=== PATIENT | female | born 1980 | race Caucasian/White ===

== ENCOUNTER → 2017-12-04 | Outpatient (CLI) | payer BC ==
--- NOTE | 2017-12-04 15:48 | RAD ---
DATE: 12/04/2017 EXAM: MAMMO RADHA ALESSANDRA WOLFF, BREAST RIGHT HISTORY: Right lateral breast pain COMPARISON: None available This study was interpreted with the benefit of Computerized Aided Detection (CAD). The breast parenchyma shows scattered fibroglandular densities. Breast parenchyma level B. FINDINGS: 2-D and 3-D tomosynthesis imaging was performed in CC and MLO projections. The breasts are mildly asymmetric with increased density laterally on the right compared to the left. No discrete mass is seen. This probably represents a normal variant in the fibroglandular pattern in this patient. Benign type calcifications are present. No suspicious microcalcifications are seen. Right breast ultrasound, 12/04/2017: A targeted ultrasound exam of the the upper outer right breast was performed in the area of pain. Normal heterogeneous fibroglandular shadows are evident. No breast mass is seen. IMPRESSION: 1. Mild breast asymmetry probably represents a normal variant in this patient. 2. No mammographic evidence of malignancy. 3. A targeted ultrasound exam of the area of right breast reveals no abnormality. Clinical surveillance is suggested. BI-RADS CATEGORY: 2 BENIGN FINDING(S) RECOMMENDED FOLLOW-UP: CLIN FOLLOW UP IMAGING CLINICALLY INDICATED Mammography is a sensitive method for finding small breast cancers, but it does not detect them all and is not a substitute for careful clinical examination. A negative mammogram does not negate a clinically suspicious finding and should not result in delay in biopsying a clinically suspicious abnormality. "Our facility is accredited by the [employer] Mammography Program."
== END | disposition home or self-care (01) ==
LOC: MAMMO 13:29
PROVIDERS: ATTEND Family Medicine
DX: N64.4 Mastodynia (principal)
CPT/HCPCS: 76641; 77066; G0279; 77062

== ENCOUNTER → 2020-03-22 | Outpatient (CLI) | payer BC ==
[~2020-03-22] MED LIST: ALBU2.5V8 IH; AZIT250T6 PO
--- NOTE | 2020-03-22 15:15 | RAD ---
CHEST PA LATERAL History: Cough Comparison: None. Findings: 2 views of the chest are submitted. There is some hazy airspace opacity right lung base. There is no pleural fluid or pneumothorax. Heart size is within normal limits. Impression: 1. There is hazy right base airspace opacity which may be infiltrate. Electronically signed by: Amanuel Bansal MD (03/22/2020 3:11 PM) [id number]
== END ==
LOC: DXRAD 14:25
PROVIDERS: ATTEND Family Medicine
DX: R91.8 Other nonspecific abnormal finding of lung field (principal); R05 Cough
CPT/HCPCS: 71046

== ENCOUNTER 2020-03-24 12:35 | Emergency (ER) | payer BC ==
[~2020-03-24] VITALS: Ht 157.5 cm; Wt 137.0 kg
[2020-03-24 13:35] VITALS: BP 162/87
--- NOTE | 2020-03-24 13:46 | RAD ---
PORTABLE CHEST 1V History: Shortness of breath Comparison: March 22, 2020 Findings: AP view of the chest is submitted. Cardiac silhouette is stable. There is some persistent right base hazy airspace opacity not convincingly changed. There is no dependent pleural fluid or pneumothorax. Impression: 1. There is some persistent hazy right base opacity which may be mild infiltrate. Electronically signed by: Amanuel Bansal MD (03/24/2020 1:43 PM) [facility]
[2020-03-24 13:47] LABS: BASO % 1 % (0-3); EOS # 0.3 x10^3/uL (0.0-0.7); EOS % 4 % (0-3); HEMATOCRIT 40.8 % (36.0-47.0); HEMOGLOBIN 13.3 g/dL (12.0-15.5); LYMPH # 2.6 x10^3/uL (1.0-4.8); LYMPH % 34 % (24-48); MEAN CORPUSCULAR HEMOGLOBIN 28 pg (25-35); MEAN CORPUSCULAR HGB CONC 33 g/dL (31-37); MEAN CORPUSCULAR VOLUME 85 fL (79-100); MONO # 0.6 x10^3/uL (0.0-1.1); MONO % 8 % (0-9); NEUT # 4.2 x10^3uL (1.8-7.7); NEUT % 54 % (31-73); PLATELET COUNT 253 x10^3/uL (140-400); RED BLOOD COUNT 4.79 x10^6/uL (3.50-5.40); RED CELL DISTRIBUTION WIDTH 13.6 % (11.5-14.5); WHITE BLOOD COUNT 7.8 x10^3/uL (4.0-11.0)
[2020-03-24 14:00] LABS: PREG TEST PT QUAL NEGATIVE (NEG)
[2020-03-24 14:01] LABS: CALCIUM 8.9 mg/dL (8.5-10.1); CREATININE 0.7 mg/dL (0.6-1.0); GFR 93.2; POTASSIUM 3.9 mmol/L (3.5-5.1)
--- NOTE | 2020-03-24 14:02 | PHYS DOC ---
General Adult EDM: Chief Complaint: COUGH HPI: HPI: 40-year-old female past medical history of uterine fibroids status post hysterectomy and obesity, presents the ED with complaints of cough, fatigue, shortness of breath and sore throat for the past 10 days. Reports her works at [employer] and has never tested positive for Covid. Patient has had 2 - Covid test. No history of asthma or underlying lung disease. Is not a tobacco smoker. Reports she was started on doxycycline 2 days ago by her primary care physician Dr. Azar. Review of Systems: Review of Systems: Constitutional: Denies fever or chills Eyes: Denies change in visual acuity HENT: Denies nasal congestion or rhinorrhea or conjunctivitis Respiratory: Denies hemoptysis, increased sputum Cardiovascular: Denies chest pain or edema GI: Denies abdominal pain, nausea, vomiting, bloody stools or diarrhea : Denies dysuria or hematuria Musculoskeletal: Denies back pain or joint pain or calf swelling Integument: Denies rash or blisters Neurologic: Denies headache, focal weakness or sensory changes Endocrine: Denies polyuria or polydipsia Lymphatic: Denies swollen glands Psychiatric: Denies depression or anxiety Heart Score: Risk Factors: Risk Factors: DM, Current or recent (<one month) smoker, HTN, HLP, family history of CAD, obesity. Risk Scores: Score 0 - 3: 2.5% MACE over next 6 weeks - Discharge Home Score 4 - 6: 20.3% MACE over next 6 weeks - Admit for Clinical Observation Score 7 - 10: 72.7% MACE over next 6 weeks - Early Invasive Strategies Physical Exam: PE: Constitutional: Well developed, well nourished, flu- appearance/non-toxic. [] HENT: Normocephalic, atraumatic, bilateral external ears normal, oropharynx moist, no oral exudates, nose normal. [] Eyes: EOMI, conjunctiva normal, no discharge. [] Neck: Normal range of motion, supple, Cardiovascular: S1 and S2 present Lungs & Thorax: Speaking in full sentences, bilateral equal chest rise Abdomen: soft, no tenderness, Skin: Warm, dry, no erythema, no rash. [] Back: No tenderness, Extremities: No tenderness, no cyanosis, no clubbing, ROM intact, no edema. [] Neurologic: Alert and oriented X 3, normal motor function, normal sensory function, no focal deficits noted. [] Psychologic: Affect normal, judgement normal, mood normal. [] Current Patient Data: Labs: Laboratory Tests Test 03/24/20 13:18 White Blood Count 7.8 x10^3/uL (4.0-11.0) Red Blood Count 4.79 x10^6/uL (3.50-5.40) Hemoglobin 13.3 g/dL (12.0-15.5) Hematocrit 40.8 % (36.0-47.0) Mean Corpuscular Volume 85 fL (79-100) Mean Corpuscular Hemoglobin 28 pg (25-35) Mean Corpuscular Hemoglobin Concent 33 g/dL (31-37) Red Cell Distribution Width 13.6 % (11.5-14.5) Platelet Count 253 x10^3/uL (140-400) Neutrophils (%) (Auto) 54 % (31-73) Lymphocytes (%) (Auto) 34 % (24-48) Monocytes (%) (Auto) 8 % (0-9) Eosinophils (%) (Auto) 4 % (0-3) H Basophils (%) (Auto) 1 % (0-3) Neutrophils # (Auto) 4.2 x10^3uL (1.8-7.7) Lymphocytes # (Auto) 2.6 x10^3/uL (1.0-4.8) Monocytes # (Auto) 0.6 x10^3/uL (0.0-1.1) Eosinophils # (Auto) 0.3 x10^3/uL (0.0-0.7) Basophils # (Auto) 0.0 x10^3/uL (0.0-0.2) Serum Test, Qualitative Negative (NEG) EKG: EKG: Sinus rhythm at 71 bpm, no axis deviation, normal intervals, T wave inversion lead III, no ST elevations or ST depressions Radiology/Procedures: Radiology/Procedures: []IMAGING REPORT Signed PATIENT: WILBERT JONES ACCOUNT: [id number] : 1980 LOCATION: ER AGE: 40 SEX: F EXAM STATUS: REG ER ORD. PHYSICIAN: OCTAVIO DALTON DO REASON: SHORTNESS OF BREATH PROCEDURE: PORTABLE CHEST 1V PORTABLE CHEST 1V History: Shortness of breath Comparison: March 22, 2020 Findings: AP view of the chest is submitted. Cardiac silhouette is stable. There is some persistent right base hazy airspace opacity not convincingly changed. There is no dependent pleural fluid or pneumothorax. Impression: 1. There is some persistent hazy right base opacity which may be mild infiltrate. Electronically signed by: Macho Scherer MD (03/24/2020 1:43 PM) [facility] DICTATED AND SIGNED BY: MACHO SCHERER MD DATE: 03/24/20 3010 CC: JAIRON CONTRERAS MD; OCTAVIO DALTON DO ~ Impressions: PERC rule for PE 0 criteria No need for further workup, as <2% chance of PE. If no criteria are positive and clinicians pre-test probability is <15%, PERC Rule criteria are satisfied. 0 points Low risk group for DVT. Unlikely according to [facility] DVT studies. Course & Med Decision Making: Course & Med Decision Making Pertinent Labs and Imaging studies reviewed. (See chart for details) COVID-19 CRITERIA: The patient was evaluated during the global COVID-19 pandemic, and that diagnosis was suspected/considered upon their initial presentation. Their evaluation, treatment and testing was consistent with current guidelines for patients who present with complaints or symptoms that may be related to COVID-19. Concern for URI sxs x10 days, started on antibiotics 2 days ago. Chest x-ray concerning for right lower lobe community-acquired pneumonia. Covid test pending. D-dimer within normal limits. Urinalysis with no signs of infection, trace blood. Troponin negative. Pt not toxic appearing, speaking in full sentences, requiring no supplemental oxygen. Will DC home with albuterol inh aler advised to continue her antibiotics. Strict ED return precautions were given for strokelike symptoms, chest pain, increased work of breathing, worsening shortness of breath or dehydration. Encouraged urgent outpatient follow-up with PMD. Life-threatening processes were considered but are low suspicion at this time, given history and physical exam. Pt was educated on all prescription medications and adverse effects. All patient's questions were answered and pt was stable at time of discharge. Life/limb-threatening differential includes but is not limited to, surgical abdomen (appendicitis, cholecystitis, diverticulitis, inflammatory bowel disease, abscess, perforation), meningitis, encephalitis, Nate's angina, necrotizing fasciitis, endocarditis, life-threatening rash, viral syndrome, gynecologic and urologic emergencies (endometritis, ovarian/testicular torsion, TOA, obstructive nephropathy, prostatitis), head and neck abscess, sepsis or shock, or respiratory failure. I spoken with the patient and her caregivers. I explained the patient's condition, diagnoses and treatment plan based on the information available to me at this time. I have answered the patient and her caregiver's questions and addressed any concerns. The patient and her caregivers have a good understanding of patient's diagnosis, condition and treatment plan as can be expected at this point. Vital signs have been stable. Patient's condition is stable and appropriate for discharge from the emergency department. Patient will pursue further outpatient evaluation with primary care physician or other designated or consulting physician as outlined in the discharge instructions. The patient and/or caregivers are agreeable to this plan of care and follow-up instructions have been explained in detail. The patient and/or caregivers have received these instructions in written form and have expressed an understanding of the discharge instructions. The patient and/or caregivers are aware that any significant change of condition or worsening of symptoms should prompt immediate return to this or the closest emergency department or call to 911. Cydney Disclaimer: Cydney Disclaimer: This electronic medical record was generated, in whole or in part, using a voice recognition dictation system. Departure Departure: Impression: Primary Impression: CAP (community acquired pneumonia) Additional Impression: Suspected COVID-19 virus infection Disposition: 01 [place] HOME SELF CARE/HOMELESS Condition: STABLE Referrals: JAIRON CONTRERAS MD (PCP) in 2-3 days for re-check Patient Instructions: Pneumonia, Adult Additional Instructions: You have been tested for or diagnosed with COVID-19. It is an infection caused by a new type of coronavirus. COVID-19 will cause cold-like or mild flu symptoms in most. It can cause more severe symptoms like problems breathing in some. There is no treatment for COVID-19. The body will clear the infection over time. Self-care will help to ease discomfort. Steps to Take: Self-Care Rest as needed. Healthy habits may help you feel better. Steps include: Choose healthy foods including fruits and vegetables. Drink water throughout the day. Get plenty of sleep each night. If you smoke, try to quit. It may ease breathing. Avoid alcohol. Keep Others Healthy The virus can spread to others. Droplets are released every time you sneeze or cough. The droplets can get into the mouth, nose, or eyes of people near you and lead to infection. To lower the chances of spreading COVID-19 to others: Stay at home until your doctor has said it is safe to leave. If you tested positive this will mean staying isolated until both of the following are true: At least 7 days have passed since the start of illness. You are free of fever for at least 72 hours without the use of medicine. During this time: - Avoid public areas, events, or transportation. Do not return to work or school until your doctor has said it is safe to do so. - Call ahead if you need to go to a medical center. Let them know you may have COVID-19. It will help them guide you where to go. They may also ask you to wear a facemask when you come to the office. - If you call for emergency medical services, let them know you may have COVID- 19. While at home: - Try to avoid close contact with others. Stay about 6 feet away. - If possible, spend most of your time in a separate room from others. - Use a face mask if you will be in close contact with others such as sharing a room or vehicle. - Have someone wipe down common surfaces in the home. Use household health technician hearing every day on areas like doorknobs, counters, or sinks. - Cough or sneeze into a tissue. Throw the tissue away right after use. If a tissue is not available, cough or sneeze into your elbow. - Wash your hands often. Wash them after sneezing or coughing. Use soap and water and wash for at least 20 seconds. Alcohol based hand power cleaner operator can be used if soap and water is not available. - Do not prepare food for others. Avoid sharing personal items like forks, spoons, or toothbrushes. - Avoid close contact with pets while you are sick. There is no evidence of the virus passing to pets. This is a safety step until more is known about this virus. Isolation can be frustrating. Social interaction can help. Keep in touch with friends and family through phone and tech options. You can still interact with others in your home, just keep a safe distance of about 6 feet. Follow-up: Your doctors office will check in with you to see if there are any changes in your health. You may be asked to keep track of symptoms to share with them. They will also let you know when you are clear to be in public again. Problems to Look Out For: Contact your doctor if your recovery is not going as you expect. Get emergency care if you have problems such as: - Trouble breathing - Nonstop chest pain or pressure - Changes in awareness, confusion, or problems waking - Lips or face have bluish color - Worsening of symptoms If you think you have an emergency, call for emergency medical services right away. As taken from [facility] Albuterol Sulfate (VENTOLIN HFA INHALER) 18 Gm Hfa.aer.ad 1 PUFF IH PRN Q2HRS PRN for for shortness of breath, #1 INHALER 0 Refills Prov: OCTAVIO DALTON DO 03/24/20 OCTAVIO DALTON DO Mar 24, 2020 14:02
[2020-03-24 14:06] LABS: ALBUMIN 3.5 g/dL (3.4-5.0); MAGNESIUM 1.9 mg/dL (1.8-2.4); TOTAL BILIRUBIN 0.2 mg/dL (0.2-1.0); TOTAL PROTEIN 7.1 g/dL (6.4-8.2)
[2020-03-24 14:34] LABS: BARBITURATES NEG (NEG); BENZODIAZEPINES NEG (NEG); CANNABINOIDS NEG (NEG); COCAINE NEG (NEG); METHADONE NEG (NEG); OPIATES NEG (NEG); PHENCYCLIDINE NEG (NEG)
[2020-03-24 14:35] LABS: AMPHETAMINE/METHAMPHETAMINE NEG (NEG)
[2020-03-24 14:41] LABS: BACTERIA,URINE 0 /HPF (0-FEW); BILIRUBIN,URINE NEG (NEG); CLARITY,URINE CLEAR; COLOR,URINE COLORLESS; GLUCOSE,URINE NEG (NEG); NITRITE,URINE NEG (NEG); RBC,URINE RARE /HPF (0-2); SQUAMOUS EPITHELIAL CELL,UR FEW /LPF; UROBILINOGEN,URINE 0.2 mg/dL (0.2 mg/dL); WBC,URINE 0 /HPF (0-4)
[2020-03-24] MEDS ORDERED: ALBU2.5V8 IH (14:44)
[2020-03-24] MEDS ORDERED: AZIT250T6 PO (14:44)
--- NOTE | 2020-03-24 15:16 | EKG ---
[address] [address] Test Date: 2020-03-24 Test Time: 13:05:53 Pat Name: WILBERT JONES Department: Room: Gender: F Integrated Specialist: MINI : 1980 Requested By: OCTAVIO DALTON Order Number: [id number] Reading MD: Measurements Intervals [place] Rate: 71 P: 45 IA: 148 QRS: 36 QRSD: 88 T: 17 QT: 384 QTc: 417 Interpretive Statements SINUS RHYTHM NORMAL ECG RI6.02 No previous ECG available for comparison
== END 2020-03-24 15:10 | disposition home or self-care (01) ==
LOC: ER 12:35
DX: J18.9 Pneumonia, unspecified organism (principal); Z20.828 Contact with and (suspected) exposure to other viral communicable diseases; E66.01 Morbid (severe) obesity due to excess calories; Z68.43 Body mass index [BMI] 50.0-59.9, adult; Z90.710 Acquired absence of both cervix and uterus
CPT/HCPCS: 36415; 71045; 80053; 80307; 81001; 82550; 83690; 83735; 84484; 84703; 85025; 85379; 93005; 99285

== ENCOUNTER 2020-10-22 15:51 | Emergency (ER) | payer BC ==
[~2020-10-22] VITALS: Ht 157.5 cm; Wt 141.8 kg
--- NOTE | 2020-10-22 16:08 | PHYS DOC ---
Past History Past Medical History: No Pertinent History (DANII PÉREZ DO) Past Surgical History: Tubal ligation (DANII PÉREZ DO) Alcohol Use: None (DANII PÉREZ DO) General Adult EDM: Chief Complaint: CHEST PAIN HPI: HPI: 40-year-old female presents with chest pain. The patient got home from work around 3 PM. She was changing her clothes when she started to get a mdli-gxh-uaijqmj stabbing sensation in the left side of her chest. It radiated down past her waist. She also had a pressure sensation in her chest. It is worse with deep breathing. She has felt slightly short of breath but no diaphoresis. The feeling has subsided mostly, but she still has cqfk-khp-[id number] at a mild level. She is very concerned about this. She has never had pain like this before. Patient admits to having anxiety at baseline. She takes medication 3 times a day for this. She has been taking all of her medications. 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 They have not had any concerns from her last appointment. Her most recent thyroid check was fine. She denies fever or chills. (DANII PÉREZ DO) Review of Systems: Review of Systems: Constitutional: Denies fever or chills Eyes: Denies change in visual acuity HENT: Denies nasal congestion or sore throat Respiratory: Denies cough or shortness of breath Cardiovascular: Chest pain GI: Denies abdominal pain, nausea, vomiting, bloody stools or diarrhea : Denies dysuria Musculoskeletal: Denies back pain or joint pain Integument: Denies rash Neurologic: Denies headache, focal weakness or sensory changes Endocrine: Denies polyuria or polydipsia Lymphatic: Denies swollen glands Psychiatric: Denies depression or anxiety (DANII PÉREZ DO) Physical Exam: PE: Constitutional: Well developed, well nourished, morbidly obese, no acute distress, non-toxic appearance. [] HENT: Normocephalic, atraumatic, bilateral external ears normal, oropharynx moist, no oral exudates, nose normal. [] Eyes: PERRLA, EOMI, conjunctiva normal, no discharge. [] Neck: Normal range of motion, no tenderness, supple, no stridor. [] Cardiovascular: Heart rate 89, regular rhythm, no murmur [] Lungs & Thorax: Bilateral breath sounds clear to auscultation [] Abdomen: Bowel sounds normal, soft, no tenderness, no masses, no pulsatile masses. [] Skin: Warm, dry, no erythema, no rash. [] Back: No tenderness, no CVA tenderness. [] Extremities: No tenderness, no cyanosis, no clubbing, ROM intact, no edema. [] Neurologic: Alert and oriented X 3, normal motor function, normal sensory function, no focal deficits noted. [] Psychologic: Affect normal, judgement normal, mood anxious. [] (DANII PÉREZ DO) EKG: EKG: Sinus rhythm, rate 89, normal axis, no ST elevations or depressions. [] (DANII PÉREZ DO) Radiology/Procedures: Radiology/Procedures: [] Impressions: XR CHEST 1V 10/22/2020 4:02 PM INDICATION: Chest pain COMPARISON: 03/24/2020 TECHNIQUE: Portable frontal view of the chest is provided. FINDINGS: The cardiomediastinal silhouette is within normal limits. Lungs are clear. There are no significant pleural effusions. There is no pulmonary vascular congestion. No pneumothorax. No suspicious osseous abnormality. IMPRESSION: There is no acute cardiopulmonary process. Electronically signed by: Capo Villalobos MD (10/22/2020 4:29 PM) [facility] [place] DICTATED AND SIGNED BY: CAPO VILLALOBOS MD DATE: 10/22/20 1629 CC: JAIRON CONTRERAS MD; DANII PÉREZ DO ~MTH0 0 (DANII PÉREZ DO) Radiology/Procedures: XR CHEST 1V 10/22/2020 4:02 PM INDICATION: Chest pain COMPARISON: 03/24/2020 TECHNIQUE: Portable frontal view of the chest is provided. FINDINGS: The cardiomediastinal silhouette is within normal limits. Lungs are clear. There are no significant pleural effusions. There is no pulmonary vascular congestion. No pneumothorax. No suspicious osseous abnormality. IMPRESSION: There is no acute cardiopulmonary process. Electronically signed by: Capo Villalobos MD (10/22/2020 4:29 PM) [facility] [place] QRS Compliance Statement: One or more of the following individualized dose reduction techniques were utilized for this examination: 1. Automated exposure control 2. Adjustment of the mA and/or kV according to patient size 3. Use of iterative reconstruction technique CT abdomen/pelvis without contrast 10/22/2020 6:13 PM INDICATION: Left flank pain COMPARISON: None available TECHNIQUE: Multiple axial CT images of the abdomen and pelvis were obtained without intravenous contrast. Coronal and sagittal reformats are provided. FINDINGS: Lungs are clear. Heart size is within normal limits. Evaluation of solid abdominal viscera is limited by lack of intravenous contrast. Liver, spleen, adrenal glands and pancreas are normal in appearance. There may be a calcified gallstone (series 2, image 70). Abdominal aorta is normal in course and caliber. No pathologically enlarged lymph nodes identified in abdomen and pelvis. Nonenlarged bilateral inguinal lymph nodes are identified, likely reactive. There is no free fluid or free intraperitoneal air. There is a punctate nonobstructing calculus in interpolar left kidney (2, 52). Urinary bladder is within normal limits given degree of distention. No hydronephrosis. No suspicious adnexal mass. Suspect hysterectomy changes. Nonenlarged mesenteric lymph nodes are present, likely reactive. Appendix appears surgically absent. No suspicious osseous abnormality is identified. IMPRESSION: Nonobstructive bowel gas pattern. No evidence for obstructive uropathy. Punctate calculus identified in mid to inferior pole the left kidney, nonobstructive. No hydronephrosis. Suspect cholelithiasis. Electronically signed by: Capo Villalobos MD (10/22/2020 6:47 PM) [facility] (GREYSON ROBERTS MD) Heart Score: C/O Chest Pain: Yes HEART Score for Chest Pain: HEART Score for Chest Pain Response (Comments) Value History Slighlty/Non-Suspicious 0 ECG Normal 0 Age < 45 0 Risk Factors 1 or 2 Risk Factors 1 Troponin < Normal Limit 0 Total 1 Risk Factors: Risk Factors: DM, Current or recent (<one month) smoker, HTN, HLP, family history of CAD, obesity. Risk Scores: Score 0 - 3: 2.5% MACE over next 6 weeks - Discharge Home Score 4 - 6: 20.3% MACE over next 6 weeks - Admit for Clinical Observation Score 7 - 10: 72.7% MACE over next 6 weeks - Early Invasive Strategies (DANII PÉREZ DO) Course & Med Decision Making: Course & Med Decision Making Pertinent Labs and Imaging studies reviewed. (See chart for details) The patient's EKG is unremarkable. Her chest x-ray is negative for acute findings. Patient CBC is unremarkable. Her troponin is negative. The CMP is still pending. Urinalysis is pending. The patient is still getting these episodic sharp pains on the left side. She has a history of GERD. We will try GI cocktail. I am signing the patient out to Dr. Roberts at 1800. [] (DANII PÉREZ DO) Course & Med Decision Making Patient care transferred to me at checkout pending second troponin. Patient is a 40-year-old female who presented with left-sided chest wall pain. EKG not concerning. Troponin x2 not concerning. Chest x-ray not concerning. Laboratory analysis not concerning. Urinalysis with trace hematuria. Responded well to GI cocktail. CT notable for possible Jenni lithiasis. Discussed all findings with patient and recommended follow-up with her primary care physician first thing Saturday morning to set up a follow-up. Gave return precautions to the ED. Patient grateful, verbalized understanding and agreed with plan of discharge. (GREYSON ROBERTS MD) Dragon Disclaimer: Dragon Disclaimer: This electronic medical record was generated, in whole or in part, using a voice recognition dictation system. (DANII PÉREZ DO) Departure Departure: Impression: Primary Impression: Chest pain Qualified Codes: R07.9 - Chest pain, unspecified Additional Impression: Cholelithiasis Disposition: HOME / SELF CARE / HOMELESS Condition: STABLE Referrals: JAIRON CONTRERAS MD (PCP) Patient Instructions: Chest Pain (Nonspecific), [id number], Flank Pain Additional Instructions: Please read all the attached information very carefully. DANII PÉREZ DO October 22, 2020 16:08 GREYSON ROBERTS MD October 22, 2020 18:45
--- NOTE | 2020-10-22 16:32 | RAD ---
XR CHEST 1V 10/22/2020 4:02 PM INDICATION: Chest pain COMPARISON: 03/24/2020 TECHNIQUE: Portable frontal view of the chest is provided. FINDINGS: The cardiomediastinal silhouette is within normal limits. Lungs are clear. There are no significant pleural effusions. There is no pulmonary vascular congestion. No pneumothora x. No suspicious osseous abnormality. IMPRESSION: There is no acute cardiopulmonary process. Electronically signed by: Maritza Dong MD (10/22/2020 4:29 PM) [facility]
[2020-10-22 16:45] LABS: BASO # 0.1 x10^3/uL (0.0-0.2); BASO % 1 % (0-3); EOS # 0.3 x10^3/uL (0.0-0.7); EOS % 4 % (0-3); HEMATOCRIT 40.4 % (36.0-47.0); HEMOGLOBIN 13.2 g/dL (12.0-15.5); LYMPH # 3.2 x10^3/uL (1.0-4.8); LYMPH % 38 % (24-48); MEAN CORPUSCULAR HEMOGLOBIN 28 pg (25-35); MEAN CORPUSCULAR HGB CONC 33 g/dL (31-37); MEAN CORPUSCULAR VOLUME 85 fL (79-100); MONO # 0.6 x10^3/uL (0.0-1.1); MONO % 7 % (0-9); NEUT # 4.1 x10^3uL (1.8-7.7); NEUT % 49 % (31-73); PLATELET COUNT 264 x10^3/uL (140-400); RED BLOOD COUNT 4.77 x10^6/uL (3.50-5.40); RED CELL DISTRIBUTION WIDTH 13.7 % (11.5-14.5); WHITE BLOOD COUNT 8.3 x10^3/uL (4.0-11.0)
--- NOTE | 2020-10-22 16:45 | EKG ---
[address] [address] Test Date: 2020-10-22 Test Time: 15:56:04 Pat Name: WILBERT JONES Department: Room: Gender: F Etymology Professor: MINI : 1980 Requested By: DANII PÉREZ Order Number: [id number] Reading MD: Measurements Intervals [place] Rate: 89 P: 37 IL: 138 QRS: 42 QRSD: 96 T: 13 QT: 368 QTc: 449 Interpretive Statements SINUS ARRHYTHMIA OTHERWISE NORMAL ECG RI6.02 No previous ECG available for comparison
[2020-10-22] MEDS ORDERED: LIDO:MAALOX 1:1 20 ML SINGLE DOSE. PO ONE (18:00)
[2020-10-22 18:02] LABS: BACTERIA,URINE 0 /HPF (0-FEW); BILIRUBIN,URINE NEG (NEG); CLARITY,URINE HAZY; COLOR,URINE YELLOW; GLUCOSE,URINE NEG (NEG); NITRITE,URINE NEG (NEG); RBC,URINE RARE /HPF (0-2); SQUAMOUS EPITHELIAL CELL,UR OCC /LPF; UROBILINOGEN,URINE 0.2 mg/dL (0.2 mg/dL); WBC,URINE 0 /HPF (0-4)
[2020-10-22 18:23] LABS: CALCIUM 8.9 mg/dL (8.5-10.1); CREATININE 0.7 mg/dL (0.6-1.0); GFR 93.2
[2020-10-22 18:28] LABS: ALBUMIN 3.6 g/dL (3.4-5.0); TOTAL BILIRUBIN 0.2 mg/dL (0.2-1.0); TOTAL PROTEIN 7.2 g/dL (6.4-8.2)
--- NOTE | 2020-10-22 18:50 | RAD ---
PQRS Compliance Statement: One or more of the following individualized dose reduction techniques were utilized for this examinat ion: 1. Automated exposure control 2. Adjustment of the mA and/or kV according to patient size 3. Use of iterative reconstruction technique CT abdomen/pelvis without contrast 10/22/2020 6:13 PM INDICATION: Left flank pain COMPARISON: None available TECHNIQUE: Multiple axial CT images of the abdomen and pelvis were obtained without intravenous contr ast. Coronal and sagittal reformats are provided. FINDINGS: Lungs are clear. Heart size is within normal limits. Evaluation of solid abdominal viscera is limited by lack of intravenous contrast. Liver, spleen, adrenal glands and pancreas are normal in appearance . There may be a calcified gallstone (series 2, image 70). Abdominal aorta is normal in course and ca liber. No pathologically enlarged lymph nodes identified in abdomen and pelvis. Nonenlarged bilateral inguinal lymph nodes are identified, likely reactive. There is no free fluid or free intraperitoneal air. There is a punctate nonobstructing calculus in interpolar left kidney (2, 52). Urinary bladder is within normal limits given degree of distention. No hydronephrosis. No suspicious adnexal mass. Shoemaker spect hysterectomy changes. Nonenlarged mesenteric lymph nodes are present, likely reactive. Appendix appears surgically absent. No suspicious osseous abnormality is identified. IMPRESSION: Nonobstructive bowel gas pattern. No evidence for obstructive uropathy. Punctate calculus identified in mid to inferior pole the left kidney, nonobstructive. No hydronephrosis. Suspect cholelithiasis. Electronically signed by: Maritza Dong MD (10/22/2020 6:47 PM) [facility]
[2020-10-22 19:08] VITALS: BP 132/70
== END 2020-10-22 19:08 | disposition home or self-care (01) ==
LOC: ER 15:51
DX: R07.89 Other chest pain (principal); K80.20 Calculus of gallbladder without cholecystitis without obstruction
CPT/HCPCS: 36415; 71045; 74176; 80053; 81001; 84484; 85025; 93005; 99285-25

== ENCOUNTER → 2020-11-03 | Outpatient (CLI) | payer BC ==
[2020-10-22 19:08] VITALS: BP 132/70
--- NOTE | 2020-11-03 08:43 | RAD ---
EXAM: Abdomen sonogram. HISTORY: Pain. TECHNIQUE: Sonographic imaging of the abdomen was performed. COMPARISON: None. FINDINGS: The liver is enlarged. There is hepatic steatosis. No focal hepatic lesion is seen. The com mon bile duct is normal in caliber. There is a single mobile stone within the gallbladder. There is n o cholecystitis. The kidneys, pancreas, spleen, aorta and inferior vena cava are unremarkable. IMPRESSION: 1. Hepatomegaly and hepatic steatosis. 2. Cholelithiasis. Electronically signed by: Chasity Cleary MD (11/03/2020 8:41 AM) [id number]
== END ==
LOC: US 07:37
PROVIDERS: ATTEND Family Medicine
DX: K80.20 Calculus of gallbladder without cholecystitis without obstruction (principal); K76.0 Fatty (change of) liver, not elsewhere classified; R16.0 Hepatomegaly, not elsewhere classified
CPT/HCPCS: 76700